=== PATIENT | male | born 1950 | race Caucasian/White ===

== ENCOUNTER 2020-11-19 16:22 | Outpatient (REF) | payer MEDICARE, SELFPAY ==
--- NOTE | ~2020-11-19 | US_ITS ---
EXAMINATION: US THYROID CLINICAL INFORMATION: Nontoxic single thyroid nodule. History of previous bilateral thyroid nodule fine-needle aspiration COMPARISON: Ultrasound thyroid soft tissue neck 10/06/2018 and 08/09/2018. TECHNIQUE: Linear transducer grayscale and color Doppler examination with attention to the region of the thyroid. FINDINGS: SIZE: Measurements of the thyroid lobes and nodules are given in sagittal, anteroposterior and transverse dimensions respectively. Right Thyroid Lobe: 6.0 x 1.4 x 1.8 cm, volume 7.7 mL. Previously 6.2 x 2.1 x 2.4 cm, volume 16.9 mL. Parenchyma: The gland echotexture is heterogeneous. Thyroid vascularity is normal. Left Thyroid Lobe: 6.0 x 1.9 x 1.9 cm, volume 11.2 mL. Previously 6.0 x 2.3 x 2.6 cm, volume 19.0 mL. Parenchyma: The gland echotexture is heterogeneous. Thyroid vascularity is normal. Isthmus: 0.37 cm in maximum AP dimension. Previously 0.6 cm. There are multiple thyroid nodules. Estimated total number of nodules greater than or equal to 1 cm: 4. Nailing Machine Operator nodules are described as follows: 1. Location: Right lower pole. Size: 1.1 x 0.6 x 0.92 cm, volume 0.32 mL. Previously: Not seen previously. Nodule characteristics: Composition: Solid/almost completely solid (2). Echogenicity: Isoechoic (1). Shape: Not taller than wide (0). Margins: Smooth (0). Echogenic Foci: None (0). ACR TI-RADS total points: 3 Previous: 3 ACR TI-RADS category: 1 Previous: 1 Significant change in size (>/= 20% in 2 dimensions and minimal increase of 2 mm or 50% or greater increase in volume): Change in features: Change in ACR TI-RADS risk category: 2. Location: Right lower pole. Size: 1.7 x 1.3 x 1.7 cm, volume 2.0 mL. Previously: 1.9 x 1.6 x 1.5 cm, volume 2.4 mL. Nodule characteristics: Composition: Solid/almost completely solid (2). Echogenicity: Isoechoic (1). Shape: Not taller than wide (0). Margins: Smooth (0). Echogenic Foci: None (0). ACR TI-RADS total points: 3 Previous: 3 ACR TI-RADS category: 1 Previous: 1 Significant change in size (>/= 20% in 2 dimensions and minimal increase of 2 mm or 50% or greater increase in volume): Change in features: Change in ACR TI-RADS risk category: 3. Location: Right lower pole. Size: 1.8 x 1.1 x 1.7 cm, volume 1.8 mL. Previously: 2.4 x 1.2 x 1.9 cm, volume 2.9 mL. Nodule characteristics: Composition: Solid/almost completely solid (2). Echogenicity: Hypoechoic (2). Shape: Not taller than wide (0). Margins: Smooth (0). Echogenic Foci: None (0). ACR TI-RADS total points: 4 Previous: 4 ACR TI-RADS category: 1 Previous: 1 Significant change in size (>/= 20% in 2 dimensions and minimal increase of 2 mm or 50% or greater increase in volume): Change in features: Change in ACR TI-RADS risk category: 4. Location: Left. Size: 2.5 x 2.0 x 1.7 cm, volume 4.4 mL. Previously: 1.4 x 1.1 x 1.2 cm, volume 1.0 mL. Nodule characteristics: Composition: Mixed cystic and solid (1). Echogenicity: Hypoechoic (2). Shape: Not taller than wide (0). Margins: Smooth (0). Echogenic Foci: None (0). ACR TI-RADS total points: 3 Previous: 3 ACR TI-RADS category: 1 Previous: 1 Significant change in size (>/= 20% in 2 dimensions and minimal increase of 2 mm or 50% or greater increase in volume): Yes. Some of the measured difference may be due to interobserver variation of the margin of the nodule. Change in features: Change in ACR TI-RADS risk category: NODES: No lymphadenopathy is seen in the tissue surrounding the thyroid gland. US/US thyroid IMPRESSION: Heterogeneous thyroid gland with multiple bilateral nodules. Interval increase in largest nodule in the mid left lobe. According to TI RADS criteria, fine-needle aspiration of this nodule would be recommended. Newly appreciated right inferior nodule. ACR TI-RADS RECOMMENDATION REFERENCE: Ultrasound-guided fine-needle aspiration, followup ultrasound, no further follow up. * TR1 (0 point) and TR 2 (2 points): No FNA or follow up * TR3 (3 points): FNA if more than or equal to 2.5 cm in maximum dimension, followup ultrasound in 1, 3 and 5 years if 1.5 to 2.4 cm in maximum dimension. * TR4 (4-6 points): FNA if more than or equal to 1.5 cm in maximum dimension, followup ultrasound in 1, 2, 3 and 5 years if 1 to 1.4 cm in maximum dimension. * TR5 (more than or equal to 7 points): FNA if more than or equal to 1 cm in maximum dimension, followup ultrasound every year for 5 years if 0.5 to 0.9 cm in maximum dimension. * TR3, TR4 or TR5 nodules that are below the size threshold for follow up receive no follow up.
== END 2020-11-19 16:23 | disposition home or self-care (01) ==
LOC: HO.US 16:22
PROVIDERS: Visit Provider Internal Medicine
DX: E04.1 Nontoxic single thyroid nodule (principal)
CPT/HCPCS: 76536

== ENCOUNTER 2021-02-13 08:40 | Outpatient (REF) | payer MEDICARE, SELFPAY ==
--- NOTE | 2021-02-13 09:56 | P.BOP_ITS ---
Brief Operative Note Date of Service: 02/13/21 Pre-op diagnosis: Multinodular Thyroid Procedure: This is doctor Gabriela Huffman. This is an ultrasound-guided fine-needle aspiration report. Date of Examination: 02/13/2021 Indication: Multinodular Thyroid Porcedure: Initially an US was performed. The Patient had previously had FNA biopsy in 2018 of an Isthmus 1.2 cm, RLP 2.3 cm, LMP 1.2 cm and a LLP 2.[address] Mosqueda, all with benign cytology. He had also previosly had benign FNA of other L lobe nodules by Dr. Betancourt and Dr. Hyman. Repeat US revealed identification of multiple new nodules, and nodules that had interval growth. FNA biopsy was determined to be indicated for the RMP 2.5 cm, Right Isthmus 1.0 cm, Isthmus 1.5 cm, LMP 2.2 cm and LLP 2.9 cm thyroid nodules. FNA biopsy was performed on 3 of these nodules today, the RMP 2.5 cm, R isthmus 1.0 cm and Isthmus 1.5 cm thyroid nodules. The remaining LMP 2.2 cm and LLP 2.9 cm thyroid nodule FNAs will be performed in a separate session. Procedure was explained to the patient. Alternatives, the risk and benefits were discussed. Written consent was obtained. A time-out was also obtained. After sterile preparation, fine-needle aspiration of a Right Mid Pole 2.5 cm thyroid nodule was performed using direct ultrasound guidance to confirm accurate needle placement. Three aspirations were made using 27 gauge needles. Samples were submitted for cytology. One pass was dedicated for [employer] sequencing material handling warehouse supervisor testing. Our attention was then turned to the right isthmus. Fine-needle aspiration of a Right Isthmus 1.0 cm thyroid nodule was performed using direct ultrasound guidance to confirm accurate needle placement. Four aspirations were made using 27 gauge needles. Samples were submitted for cytology. One pass was dedicated for [employer] sequencing material handling warehouse supervisor testing. Our attention was then turned to the Isthmus. Fine-needle aspiration of an Isthmus 1.5 cm thyroid nodule was performed using direct ultrasound guidance to confirm accurate needle placement. Four aspirations were made using 27 gauge needles. Samples were submitted for cytology. One pass was dedicated for [employer] sequencing material handling warehouse supervisor testing. The patient tolerated the procedure well. Aftercare instructions were provided. Impression: Uncomplicated fine needle aspiration biopsy of a Right Mid Pole 2.5 cm, Right Isthmus 1.0 cm and Isthmus 1.5 cm thyroid nodule under ultrasound guidance. The patient will be scheduled for another session to complete FNA biopsy of the LMP 2.2 cm and LLP 2.9 cm thyroid nodules. Surgeon: Gabriela Huffman, DO Was an Powder Worker used for this Procedure?: No Estimated blood loss (mL): 0
== END 2021-02-13 08:41 | disposition home or self-care (01) ==
LOC: HO.US 08:40
PROVIDERS: PCP Internal Medicine; Visit Provider Internal Medicine
DX: E04.2 Nontoxic multinodular goiter (principal)
CPT/HCPCS: 10005; 10006; 88172; 88173; 88177; 88305

== ENCOUNTER → 2021-03-17 08:54 | Outpatient (BNVA) | payer MEDICARE, SELFPAY | PROVIDERS: PCP Internal Medicine; Visit Provider Internal Medicine | CPT/HCPCS: Q3014 ==

== ENCOUNTER 2021-06-26 10:33 | Outpatient (REF) | payer MEDICARE, OTHER, SELFPAY ==
--- NOTE | 2021-06-26 11:30 | PM.OP ---
Brief Operative Note Date of Service: 06/26/21 Pre-op diagnosis: Multinodular Thyroid Procedure: This is doctor Gabriela Huffman. This is an ultrasound-guided fine-needle aspiration report. Date of Examination: 06/26/2021 Indication: Multinodular Thyroid Porcedure: Procedure was explained to the patient. Alternatives, the risk and benefits were discussed. Written consent was obtained. A time-out was also obtained. After sterile preparation, fine-needle aspiration of a left mid pole 2.2 cm thyroid nodule was performed using direct ultrasound guidance to confirm accurate needle placement. Four aspirations were made using 27 gauge needles. Two additional aspirations were made using 25 guage needles. Samples were submitted for cytology. One pass was dedicated for [employer] sequencing aoc operations intelligence officer testing. Our attention was then turned to the left lower pole. Fine-needle aspiration of a left lower pole 2.9 cm thyroid nodule was performed using direct ultrasound guidance to confirm accurate needle placement. One aspiration was made using 27 gauge needles. Four additional aspirations were made using 25 guage needles. Samples were submitted for cytology. One pass was dedicated for [employer] sequencing aoc operations intelligence officer testing. The patient tolerated the procedure well. Aftercare instructions were provided. Impression: Uncomplicated fine needle aspiration biopsy of a left mid pole 2.2 cm thyroid nodule and a left lower pole 2.9 cm thyroid nodule under ultrasound guidance. Surgeon: Gabriela Huffman, DO Was an Api Product Manager used for this Procedure?: No Estimated blood loss (mL): 0
== END 2021-06-26 10:34 | disposition home or self-care (01) ==
LOC: HO.US 10:33
PROVIDERS: PCP Family Medicine; Visit Provider Internal Medicine
DX: E04.2 Nontoxic multinodular goiter (principal)
CPT/HCPCS: 10005; 10006; 88172; 88173; 88177

== ENCOUNTER 2021-07-09 13:19 | Outpatient (REF) | payer MEDICARE, SELFPAY ==
[2021-07-09 14:58] LABS: Free T4 (Free Thyroxine) 1.74 ng/dL (0.71-1.85); Thyroid Stimulating Hormone < 0.01 uIU/mL (0.32-4.0)
== END 2021-07-09 13:20 | disposition home or self-care (01) ==
LOC: HO.LAB 13:19
PROVIDERS: PCP Family Medicine; Visit Provider Internal Medicine
DX: E04.2 Nontoxic multinodular goiter (principal)
CPT/HCPCS: 36415; 84439; 84443

== ENCOUNTER → 2021-07-10 10:14 | Outpatient (BNVA) | payer MEDICARE, SELFPAY | PROVIDERS: PCP Internal Medicine; Visit Provider Internal Medicine | DX: E04.2 Nontoxic multinodular goiter (principal); E05.90 Thyrotoxicosis, unspecified without thyrotoxic crisis or storm | CPT/HCPCS: Q3014 ==

== ENCOUNTER 2021-08-13 11:19 | Outpatient (REF) | payer MEDICARE, SELFPAY ==
[2021-08-13 14:13] LABS: Free T4 (Free Thyroxine) 1.33 ng/dL (0.71-1.85); Thyroid Stimulating Hormone < 0.01 uIU/mL (0.32-4.0)
[2021-08-15 00:42] LABS: Triiodothyronine T3 Total 118 ng/dL (76-181)
[2021-08-15 18:02] LABS: Thyroglobulin Antibodies <1 IU/mL (< or = 1); Thyroid Peroxidase Antibodies <1 IU/mL (<9)
[2021-08-19 14:31] LABS: Thyrotropin Receptor Antibody <1.00 IU/L (<=2.00)
[2021-08-19 16:57] LABS: Thyroid Stimulating Immunoglob 157 % baseline (<140)
== END 2021-08-13 11:20 | disposition home or self-care (01) ==
LOC: HO.LAB 11:19
PROVIDERS: PCP Family Medicine; Visit Provider Internal Medicine
DX: E05.90 Thyrotoxicosis, unspecified without thyrotoxic crisis or storm (principal); E04.2 Nontoxic multinodular goiter
CPT/HCPCS: 36415; 83520; 84439; 84443; 84445; 84480; 86376; 86800

== ENCOUNTER → 2021-08-21 10:35 | Outpatient (BNVA) | payer MEDICARE, SELFPAY | PROVIDERS: PCP Family Medicine; Visit Provider Internal Medicine | DX: E04.2 Nontoxic multinodular goiter (principal); E05.90 Thyrotoxicosis, unspecified without thyrotoxic crisis or storm | CPT/HCPCS: Q3014 ==

== ENCOUNTER 2021-09-30 07:56 | Outpatient (REF) | payer MEDICARE, SELFPAY ==
[2021-09-30 10:08] LABS: Free T4 (Free Thyroxine) 2.03 ng/dL (0.71-1.85); Thyroid Stimulating Hormone < 0.01 uIU/mL (0.32-4.0)
[2021-10-03 00:52] LABS: Triiodothyronine T3 Total 172 ng/dL (76-181)
== END 2021-09-30 07:57 | disposition home or self-care (01) ==
LOC: HO.LAB 07:56
PROVIDERS: PCP Family Medicine; Visit Provider Internal Medicine
DX: E05.90 Thyrotoxicosis, unspecified without thyrotoxic crisis or storm (principal); E04.2 Nontoxic multinodular goiter
CPT/HCPCS: 36415; 84439; 84443; 84480

== ENCOUNTER → 2021-10-02 08:46 | Outpatient (BNVA) | payer MEDICARE, SELFPAY | PROVIDERS: PCP Family Medicine; Visit Provider Internal Medicine | DX: E05.90 Thyrotoxicosis, unspecified without thyrotoxic crisis or storm (principal); E04.2 Nontoxic multinodular goiter | CPT/HCPCS: Q3014 ==

== ENCOUNTER → 2021-10-15 10:08 | Outpatient (REF) | payer MEDICARE, SELFPAY ==
--- NOTE | ~2021-10-15 | NM_ITS ---
EXAMINATION: THYROID UPTAKE AND SCAN CLINICAL INFORMATION: Thyrotoxicosis. COMPARISON: No previous radionuclide scan is available for comparison. Multiple fibroid ultrasound and ultrasound-guided thyroid biopsies are available for comparison, the most recent a thyroid ultrasound study dated 11/19/2020. TECHNIQUE: Following the oral administration of 273 microcuries of I-123 sodium iodide, thyroid uptake was performed and expressed as a percentage of the administrated dose. Gamma scintillation camera images of the thyroid in the anterior and right and left anterior oblique views were obtained using a pinhole collimator following the administration of 10 mCi Tc-99m pertechnetate. FINDINGS: The uptake is 9.0% at 4 hours and 35.3% at 24 hours (Normal radioiodine uptake at 24 hours is 10% to 30%). The radioiodine uptake is mildly elevated. The radiopertechnetate thyroid scintigram demonstrates the thyroid gland to be normal in size, shape, and position. There is moderately heterogeneous distribution of activity within the gland with small rounded areas of relatively increased and decreased activity present bilaterally.. These focal areas appear to be predominantly rounded areas of increased activity with scattered regions of decreased activity less numerous. The overall trapping function is moderately increased throughout. A dominant focus by size is not present but the most intense focus of increased activity is in the mid right lobe. The ultrasound study dated 11/19/2020 showed multiple nodules bilaterally any of which are subcentimeter in size, but at least 4 showed size is greater than 1 cm. Because of the number of nodules and the differences in these 2 modalities is not possible to accurately matched to the nodules on the radionuclide scan 2 nonspecific nodules on the ultrasound. 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 The radioiodine uptake is mildly elevated.
== END ==
LOC: HO.NUCMED 10:08
PROVIDERS: PCP Family Medicine; Visit Provider Internal Medicine
DX: E05.90 Thyrotoxicosis, unspecified without thyrotoxic crisis or storm (principal); E04.2 Nontoxic multinodular goiter
CPT/HCPCS: 78014; A9512; A9516

== ENCOUNTER 2021-10-30 09:31 | Outpatient (REF) | payer MEDICARE, SELFPAY ==
[2021-10-30 10:58] LABS: Calcium 9.3 mg/dL (8.4-10.2); Phosphorus 2.5 mg/dL (2.7-4.5)
[2021-10-30 11:28] LABS: Vitamin D 25-OH Total 33.7 ng/mL (>30)
[2021-10-31 13:26] LABS: Calcium (PTHI) 9.3 mg/dL (8.6-10.3); PTHI 30 pg/mL (16-77)
[2021-11-01 08:56] LABS: Triiodothyronine T3 Total 167 ng/dL (76-181)
== END 2021-10-30 09:32 | disposition home or self-care (01) ==
LOC: HO.LAB 09:31
PROVIDERS: PCP Family Medicine; Visit Provider Internal Medicine
DX: E05.90 Thyrotoxicosis, unspecified without thyrotoxic crisis or storm (principal); E04.2 Nontoxic multinodular goiter
CPT/HCPCS: 36415; 82040; 82306; 82310; 83970; 84100; 84439; 84480

== ENCOUNTER 2021-11-06 09:21 | Outpatient (REF) | payer MEDICARE, SELFPAY ==
[2021-11-06 10:49] LABS: Free T4 (Free Thyroxine) 1.83 ng/dL (0.71-1.85)
[2021-11-08 18:17] LABS: Triiodothyronine T3 Total 158 ng/dL (76-181)
== END 2021-11-06 09:22 | disposition home or self-care (01) ==
LOC: HO.LAB 09:21
PROVIDERS: Visit Provider Internal Medicine
DX: E05.90 Thyrotoxicosis, unspecified without thyrotoxic crisis or storm (principal)
CPT/HCPCS: 36415; 84439; 84480

== ENCOUNTER 2021-11-27 08:32 | Outpatient (REF) | payer MEDICARE, SELFPAY ==
[2021-11-27 09:54] LABS: Free T4 (Free Thyroxine) 1.22 ng/dL (0.71-1.85); Thyroid Stimulating Hormone < 0.01 uIU/mL (0.32-4.0)
[2021-11-29 04:48] LABS: Triiodothyronine T3 Total 119 ng/dL (76-181)
== END 2021-11-27 08:33 | disposition home or self-care (01) ==
LOC: HO.LAB 08:32
PROVIDERS: PCP Family Medicine; Visit Provider Internal Medicine
DX: E05.90 Thyrotoxicosis, unspecified without thyrotoxic crisis or storm (principal)
CPT/HCPCS: 36415; 84439; 84443; 84480

== ENCOUNTER 2021-12-31 08:59 | Outpatient (REF) | payer MEDICARE, SELFPAY ==
[2021-12-31 10:23] LABS: Thyroid Stimulating Hormone 0.02 uIU/mL (0.32-4.0)
[2022-01-02 05:07] LABS: Triiodothyronine T3 Total 90 ng/dL (76-181)
== END 2021-12-31 09:00 | disposition home or self-care (01) ==
LOC: HO.LAB 08:59
PROVIDERS: PCP Family Medicine; Visit Provider Internal Medicine
DX: E05.00 Thyrotoxicosis with diffuse goiter without thyrotoxic crisis or storm (principal)
CPT/HCPCS: 36415; 84439; 84443; 84480

== ENCOUNTER 2022-03-16 14:12 | Outpatient (REF) | payer MEDICARE, SELFPAY ==
[2022-03-16 15:53] LABS: Thyroid Stimulating Hormone 4.06 uIU/mL (0.32-4.0)
[2022-03-18 03:31] LABS: Triiodothyronine T3 Total 87 ng/dL (76-181)
== END 2022-03-16 14:13 | disposition home or self-care (01) ==
LOC: HO.LAB 14:12
PROVIDERS: PCP Family Medicine; Visit Provider Internal Medicine
DX: E05.90 Thyrotoxicosis, unspecified without thyrotoxic crisis or storm (principal)
CPT/HCPCS: 36415; 84439; 84443; 84480

== ENCOUNTER 2022-03-30 14:51 | Outpatient (REF) | payer MEDICARE, SELFPAY ==
[2022-03-30 16:11] LABS: Free T4 (Free Thyroxine) 0.95 ng/dL (0.71-1.85)
[2022-04-01 01:43] LABS: Triiodothyronine T3 Total 84 ng/dL (76-181)
== END 2022-03-30 14:52 | disposition home or self-care (01) ==
LOC: HO.LAB 14:51
PROVIDERS: PCP Family Medicine; Visit Provider Internal Medicine
DX: E05.90 Thyrotoxicosis, unspecified without thyrotoxic crisis or storm (principal)
CPT/HCPCS: 36415; 84439; 84480

== ENCOUNTER 2022-04-16 09:56 | Outpatient (REF) | payer MEDICARE, SELFPAY ==
[2022-04-16 11:16] LABS: Thyroid Stimulating Hormone 3.16 uIU/mL (0.32-4.0)
[2022-04-16 11:37] LABS: Free T4 (Free Thyroxine) 0.87 ng/dL (0.71-1.85)
[2022-04-18 08:57] LABS: Triiodothyronine T3 Total 85 ng/dL (76-181)
== END 2022-04-16 09:57 | disposition home or self-care (01) ==
LOC: HO.LAB 09:56
PROVIDERS: PCP Family Medicine; Visit Provider Internal Medicine
DX: E05.90 Thyrotoxicosis, unspecified without thyrotoxic crisis or storm (principal)
CPT/HCPCS: 36415; 84439; 84443; 84480

== ENCOUNTER 2022-05-06 11:12 | Outpatient (REF) | payer MEDICARE, SELFPAY ==
[2022-05-06 13:46] LABS: Free T4 (Free Thyroxine) 1.07 ng/dL (0.71-1.85)
[2022-05-07 15:58] LABS: Triiodothyronine T3 Total 100 ng/dL (76-181)
== END 2022-05-06 11:13 | disposition home or self-care (01) ==
LOC: HO.LAB 11:12
PROVIDERS: PCP Family Medicine; Visit Provider Internal Medicine
DX: E05.00 Thyrotoxicosis with diffuse goiter without thyrotoxic crisis or storm (principal)
CPT/HCPCS: 36415; 84439; 84480

== ENCOUNTER 2022-06-25 08:57 | Outpatient (REF) | payer MEDICARE, SELFPAY ==
[2022-06-25 10:52] LABS: Free T4 (Free Thyroxine) 1.31 ng/dL (0.71-1.85); Thyroid Stimulating Hormone 0.31 uIU/mL (0.32-4.0)
[2022-06-27 01:29] LABS: Triiodothyronine T3 Total 104 ng/dL (76-181)
== END 2022-06-25 08:58 | disposition home or self-care (01) ==
LOC: HO.LAB 08:57
PROVIDERS: PCP Family Medicine; Visit Provider Internal Medicine
DX: E05.00 Thyrotoxicosis with diffuse goiter without thyrotoxic crisis or storm (principal)
CPT/HCPCS: 36415; 84439; 84443; 84480

== ENCOUNTER → 2022-07-16 13:30 | Outpatient (BNVA) | payer MEDICARE, OTHER, SELFPAY | PROVIDERS: PCP Family Medicine; Visit Provider Internal Medicine | DX: E89.0 Postprocedural hypothyroidism (principal); E55.9 Vitamin D deficiency, unspecified | CPT/HCPCS: 99212 ==

== ENCOUNTER 2022-08-07 08:24 | Outpatient (REF) | payer MEDICARE, SELFPAY ==
[2022-08-07 09:30] LABS: Albumin Level 4.2 g/dL (3.5-5.0); Estimated Glomerular Filt Rate > 60
[2022-08-07 09:50] LABS: Free T4 (Free Thyroxine) 1.28 ng/dL (0.71-1.85); Thyroid Stimulating Hormone 0.64 uIU/mL (0.32-4.0)
[2022-08-10 15:29] LABS: Calcium (PTHI) 8.6 mg/dL (8.6-10.3); PTHI 29 pg/mL (16-77)
== END 2022-08-07 08:25 | disposition home or self-care (01) ==
LOC: HO.LAB 08:24
PROVIDERS: PCP Family Medicine; Visit Provider Internal Medicine
DX: E89.0 Postprocedural hypothyroidism (principal); E55.9 Vitamin D deficiency, unspecified
CPT/HCPCS: 36415; 82040; 82306; 82565; 83970; 84439; 84443

== ENCOUNTER 2022-09-23 13:18 | Outpatient (REF) | payer MEDICARE, SELFPAY ==
[2022-09-23 15:57] LABS: Free T4 (Free Thyroxine) 1.42 ng/dL (0.71-1.85); Thyroid Stimulating Hormone 0.47 uIU/mL (0.32-4.0)
== END 2022-09-23 13:19 | disposition home or self-care (01) ==
LOC: HO.LAB 13:18
PROVIDERS: PCP Family Medicine; Visit Provider Internal Medicine
DX: E89.0 Postprocedural hypothyroidism (principal)
CPT/HCPCS: 36415; 84439; 84443

== ENCOUNTER 2022-11-04 08:49 | Outpatient (AMB) | payer MEDICARE, SELFPAY ==
--- NOTE | 2022-11-04 08:49 | A.OFFVIS_ITS ---
Intake Intake Visit Reasons: F/U Hypothyroidism Intake Note: pt is here for hypothyroidism Foreign Agent Required: No Allergies No Known Allergies Allergy (Verified 11/04/22 10:01) Medication List - Last Reconciled 11/04/22 by Gabriela Huffman, atorvastatin 10 mg PO DAILY levothyroxine 112 mcg PO DAILY 90 days nifedipine ER 60 mg PO DAILY tamsulosin 0.4 mg PO DAILY HPI HPI Comments History of Present Illness Details 71 YO Male who is seen in F/U for a multinodular thyroid and Grave's disease. He was previously followed by Dr. Mosqueda. He has a longstanding history of a multinodular thyroid. The Patient had previously had an FNA biopsy in 2018 of an Isthmus 1.2 cm, RLP 2.3 cm, LMP 1.2 cm and a LLP 2.[address]ule [address] Mosqueda, all with benign cytology.? He had also previosly had benign FNA of other L lobe nodules by Dr. Betancourt and Dr. Hyman. Repeat US revealed identification of multiple new nodules, and nodules that had interval growth.? FNA biopsy was determined to be indicated for the RMP 2.5 cm, Right Isthmus 1.0 cm, Isthmus 1.5 cm, LMP 2.2 cm and LLP 2.9 cm thyroid nodules. 02/13/2021 he underwent FNA biopsy by de of his RMP 2.5 cm, R isthmus 1.0 cm and Isthmus 1.5 cm thyroid nodules. Cytology was benign, bethesda category II for all nodules. He then underwent additional biopsies 06/26/2021 of his LMP 2.2 cm and his LLP 2.9 cm thyroid nodules. Cytology was benign, bethesda category II for both of these nodules. TSH was found to be in the hyperthyroid range. This was repeated and again found to be completely supressed. His TSI was positive, but TRAB, TPO and TG antibodies were negative. He was ordered for an uptake and scan, which confirmed a toxic MNG. He was started on methimazole and did achieve euthyroidism. He was referred to Dr. Cary and underwent a total thyroidectomy 06/01/2022. Official surgical path was benign. He was started postoperatively on levothyroxine 125 mcg PO daily. Repeat labs 6 weeks later revealed hyperthyroidism, so his dose was decreased to 112 mcg PO daily which he remains on now. TSH is at goal. He reports feeling well. He denies any symptoms of hyper or hypothyroidism. US Thyroid 11/19/2020: Right Thyroid Lobe: 6.0 x 1.4 x 1.8 cm, volume 7.7 mL. Previously 6.2 x 2.1 x 2.4 cm, volume 16.9 mL. Parenchyma: The gland echotexture is heterogeneous. Thyroid vascularity is normal. Left Thyroid Lobe: 6.0 x 1.9 x 1.9 cm, volume 11.2 mL. Previously 6.0 x 2.3 x 2.6 cm, volume 19.0 mL. Parenchyma: The gland echotexture is heterogeneous. Thyroid vascularity is normal. Isthmus: 0.37 cm in maximum AP dimension. Previously 0.6 cm. There are multiple thyroid nodules. Estimated total number of nodules greater than or equal to 1 cm: 4. Automobile Brake Bonder nodules are described as follows: 1.? Location: Right lower pole. ?? ? Size: 1.1 x 0.6 x 0.92 cm, volume 0.32 mL. ?? ? Previously: Not seen previously. ?? ? Nodule characteristics: ?? ? Composition: Solid/almost completely solid (2). ?? ? Echogenicity: Isoechoic (1). ?? ? Shape: Not taller than wide (0). ?? ? Margins: Smooth (0). ?? ? Echogenic Foci: None (0).? ACR TI-RADS total points: 3 Previous: 3 ?? ? ACR TI-RADS category: 1 Previous: 1 ? Significant change in size (>/= 20% in 2 dimensions and minimal increase of 2 mm or 50% or greater increase in volume): ?? ? Change in features: ?? ? Change in ACR TI-RADS risk category: 2.? Location: Right lower pole. ?? ? Size: 1.7 x 1.3 x 1.7 cm, volume 2.0 mL. ?? ? Previously: 1.9 x 1.6 x 1.5 cm, volume 2.4 mL. ?? ? Nodule characteristics: ?? ? Composition: Solid/almost completely solid (2). ?? ? Echogenicity: Isoechoic (1). ?? ? Shape: Not taller than wide (0). ?? ? Margins: Smooth (0). ?? ? Echogenic Foci: None (0). ? ACR TI-RADS total points: 3 Previous: 3 ?? ? ACR TI-RADS category: 1 Previous: 1 ? Significant change in size (>/= 20% in 2 dimensions and minimal increase of 2 mm or 50% or greater increase in volume): ?? ? Change in features: ?? ? Change in ACR TI-RADS risk category: 3.? Location: Right lower pole. ?? ? Size: 1.8 x 1.1 x 1.7 cm, volume 1.8 mL. ?? ? Previously: 2.4 x 1.2 x 1.9 cm, volume 2.9 mL. ?? ? Nodule characteristics: ?? ? Composition: Solid/almost completely solid (2). ?? ? Echogenicity: Hypoechoic (2). ?? ? Shape: Not taller than wide (0). ?? ? Margins: Smooth (0). ?? ? Echogenic Foci: None (0). ? ACR TI-RADS total points: 4 Previous: 4 ?? ? ACR TI-RADS category: 1 Previous: 1 ? Significant change in size (>/= 20% in 2 dimensions and minimal increase of 2 mm or 50% or greater increase in volume): ?? ? Change in features: ?? ? Change in ACR TI-RADS risk category: 4.? Location: Left. ?? ? Size: 2.5 x 2.0 x 1.7 cm, volume 4.4 mL. ?? ? Previously: 1.4 x 1.1 x 1.2 cm, volume 1.0 mL. ?? ? Nodule characteristics: ?? ? Composition: Mixed cystic and solid (1). ?? ? Echogenicity: Hypoechoic (2). ?? ? Shape: Not taller than wide (0). ?? ? Margins: Smooth (0). ?? ? Echogenic Foci: None (0). ? ACR TI-RADS total points: 3 Previous: 3 ?? ? ACR TI-RADS category: 1 Previous: 1 ? Significant change in size (>/= 20% in 2 dimensions and minimal increase of 2 mm or 50% or greater increase in volume): Yes. Some of the measured difference may be due to interobserver variation of the margin of the nodule. ?? ? Change in features: ?? ? Change in ACR TI-RADS risk category: NODES: No lymphadenopathy is seen in the tissue surrounding the thyroid gland. Labs: Laboratory Tests 09/23/22 13:31 TSH 0.47 Free T4 1.42 PFSH Medical History Hyperthyroidism Multinodular thyroid Postoperative hypothyroidism Surgical History Hx of biopsy Hx of hernia repair Hx of sigmoidoscopy Hx of total thyroidectomy Family History Father Colon cancer Mother Thyroid disease Brother Thyroid cancer Social History Alcohol intake: current Alcohol intake frequency: a few times a month Patient Tobacco Use Status: Never used Tobacco Assessment & Plan Assessment & Plan (1) Postoperative hypothyroidism: Code(s): E89.0 - Postprocedural hypothyroidism Plan: Patient with postoperative hypothyroidism after a total thyroidectomy. He remains on levothyroxine 112 mcg PO daily. TSH is at goal. Will continue on this dose and he will repeat labs in 3 months time. All questions were answered. He is in agreement with this plan of care. I spent 20 minutes in reviewing the record, seeing the patient and documenting in the medical record, including 5 minutes on the phone with the Patient. Orders: Orders Free T4 (Free Thyroxine) 3 Months E89.0 - Postprocedural hypothyroidism Thyroid Stimulating Hormone 3 Months E89.0 - Postprocedural hypothyroidism Telehealth Telehealth Location of provider rendering services: practice address Location of patient: address on file Patient Identification confirmed using: Name, : Yes Telehealth method: voice only Patient verbally consented to treatment: Yes Patient verbally consented to billing insurance company: Yes Patient informed of any privacy concerns related to visit: Yes Coding Level of Care Code Tele Est Pt Level 3 (03512) Diagnoses Postoperative hypothyroidism E89.0
== END 2022-11-04 13:20 | disposition home or self-care (01) ==
LOC: HO.ENCR 08:49
PROVIDERS: PCP Family Medicine; Visit Provider Internal Medicine
DX: E89.0 Postprocedural hypothyroidism (principal)
CPT/HCPCS: 99443

== ENCOUNTER → 2022-11-04 08:49 | Outpatient (BNVA) | payer MEDICARE, SELFPAY | PROVIDERS: PCP Family Medicine; Visit Provider Internal Medicine ==

== ENCOUNTER 2023-02-04 13:04 | Outpatient (REF) | payer MEDICARE, SELFPAY ==
[2023-02-04 14:46] LABS: Free T4 (Free Thyroxine) 1.19 ng/dL (0.71-1.85); Thyroid Stimulating Hormone 2.55 uIU/mL (0.32-4.0)
== END 2023-02-04 13:05 | disposition home or self-care (01) ==
LOC: HO.LAB 13:04
PROVIDERS: PCP Family Medicine; Visit Provider Internal Medicine Endocrinology, Diabetes & Metabolism
DX: E89.0 Postprocedural hypothyroidism (principal)
CPT/HCPCS: 36415; 84439; 84443

== ENCOUNTER 2023-02-17 09:12 | Outpatient (AMB) | payer MEDICARE, SELFPAY ==
[2023-02-17 09:16] VITALS: BP 126/80; PULSE 82; BMI 28.2
--- NOTE | 2023-02-17 09:16 | MHC.OFFVIS ---
Intake Vital Signs 02/17/23 09:16 Height 5 ft 9 in Weight 190 lb 11.198 oz BMI 28.2 BP 126/80 Blood Pressure Location Lt brachial Position Sitting Pulse 82 Pulse Source Pulse Oximeter Intake Visit Reasons: F/U Hypothyroidism/Confirmed Intake Note: New patient to Dr. Hyman present today for Hypothyroidism follow up visit. Previously followed by Dr. Dupont. 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 He was previously followed by Dr. Mosqueda. Patient last saw Dr. Dupont on 11/04/2022. Currently on 112 ug He has a longstanding history of a multinodular thyroid. The Patient had previously had an FNA biopsy in 2018 of an Isthmus 1.2 cm, RLP 2.3 cm, LMP 1.2 cm and a LLP 2.[address] nodule [address] Dr[address] Mosqueda, all with benign cytology.? He had also previosly had benign FNA of other L lobe nodules by Dr. Betnacourt and Dr. Hyman. Repeat US revealed identification of multiple new nodules, and nodules that had interval growth.? FNA biopsy was determined to be indicated for the RMP 2.5 cm, Right Isthmus 1.0 cm, Isthmus 1.5 cm, LMP 2.2 cm and LLP 2.9 cm thyroid nodules. 02/13/2021 he underwent FNA biopsy by hi of his RMP 2.5 cm, R isthmus 1.0 cm and Isthmus 1.5 cm thyroid nodules. Cytology was benign, bethesda category II for all nodules. He then underwent additional biopsies 06/26/2021 of his LMP 2.2 cm and his LLP 2.9 cm thyroid nodules. Cytology was benign, bethesda category II for both of these nodules. TSH was found to be in the hyperthyroid range. This was repeated and again found to be completely supressed. His TSI was positive, but TRAB, TPO and TG antibodies were negative. He was ordered for an uptake and scan, which confirmed a toxic MNG. He was started on methimazole and did achieve euthyroidism. He was referred to Dr. Cary and underwent a total thyroidectomy 06/01/2022. Official surgical path was benign. He was started postoperatively on levothyroxine 125 mcg PO daily. Repeat labs 6 weeks later revealed hyperthyroidism, so his dose was decreased to 112 mcg PO daily which he remains on now. TSH is at goal. He reports feeling well. He denies any symptoms of hyper or hypothyroidism. US Thyroid 11/19/2020: Right Thyroid Lobe: 6.0 x 1.4 x 1.8 cm, volume 7.7 mL. Previously 6.2 x 2.1 x 2.4 cm, volume 16.9 mL. Parenchyma: The gland echotexture is heterogeneous. Thyroid vascularity is normal. Left Thyroid Lobe: 6.0 x 1.9 x 1.9 cm, volume 11.2 mL. Previously 6.0 x 2.3 x 2.6 cm, volume 19.0 mL. Parenchyma: The gland echotexture is heterogeneous. Thyroid vascularity is normal. Isthmus: 0.37 cm in maximum AP dimension. Previously 0.6 cm. There are multiple thyroid nodules. Estimated total number of nodules greater than or equal to 1 cm: 4. Remittance Clerk nodules are described as follows: 1.? Location: Right lower pole. ?? ? Size: 1.1 x 0.6 x 0.92 cm, volume 0.32 mL. ?? ? Previously: Not seen previously. ?? ? Nodule characteristics: ?? ? Composition: Solid/almost completely solid (2). ?? ? Echogenicity: Isoechoic (1). ?? ? Shape: Not taller than wide (0). ?? ? Margins: Smooth (0). ?? ? Echogenic Foci: None (0).? ACR TI-RADS total points: 3 Previous: 3 ?? ? ACR TI-RADS category: 1 Previous: 1 ? Significant change in size (>/= 20% in 2 dimensions and minimal increase of 2 mm or 50% or greater increase in volume): ?? ? Change in features: ?? ? Change in ACR TI-RADS risk category: 2.? Location: Right lower pole. ?? ? Size: 1.7 x 1.3 x 1.7 cm, volume 2.0 mL. ?? ? Previously: 1.9 x 1.6 x 1.5 cm, volume 2.4 mL. ?? ? Nodule characteristics: ?? ? Composition: Solid/almost completely solid (2). ?? ? Echogenicity: Isoechoic (1). ?? ? Shape: Not taller than wide (0). ?? ? Margins: Smooth (0). ?? ? Echogenic Foci: None (0). ? ACR TI-RADS total points: 3 Previous: 3 ?? ? ACR TI-RADS category: 1 Previous: 1 ? Significant change in size (>/= 20% in 2 dimensions and minimal increase of 2 mm or 50% or greater increase in volume): ?? ? Change in features: ?? ? Change in ACR TI-RADS risk category: 3.? Location: Right lower pole. ?? ? Size: 1.8 x 1.1 x 1.7 cm, volume 1.8 mL. ?? ? Previously: 2.4 x 1.2 x 1.9 cm, volume 2.9 mL. ?? ? Nodule characteristics: ?? ? Composition: Solid/almost completely solid (2). ?? ? Echogenicity: Hypoechoic (2). ?? ? Shape: Not taller than wide (0). ?? ? Margins: Smooth (0). ?? ? Echogenic Foci: None (0). ? ACR TI-RADS total points: 4 Previous: 4 ?? ? ACR TI-RADS category: 1 Previous: 1 ? Significant change in size (>/= 20% in 2 dimensions and minimal increase of 2 mm or 50% or greater increase in volume): ?? ? Change in features: ?? ? Change in ACR TI-RADS risk category: 4.? Location: Left. ?? ? Size: 2.5 x 2.0 x 1.7 cm, volume 4.4 mL. ?? ? Previously: 1.4 x 1.1 x 1.2 cm, volume 1.0 mL. ?? ? Nodule characteristics: ?? ? Composition: Mixed cystic and solid (1). ?? ? Echogenicity: Hypoechoic (2). ?? ? Shape: Not taller than wide (0). ?? ? Margins: Smooth (0). ?? ? Echogenic Foci: None (0). ? ACR TI-RADS total points: 3 Previous: 3 ?? ? ACR TI-RADS category: 1 Previous: 1 ? Significant change in size (>/= 20% in 2 dimensions and minimal increase of 2 mm or 50% or greater increase in volume): Yes. Some of the measured difference may be due to interobserver variation of the margin of the nodule. ?? ? Change in features: ?? ? Change in ACR TI-RADS risk category: NODES: No lymphadenopathy is seen in the tissue surrounding the thyroid gland. Labs: Laboratory Tests 09/23/22 13:31 TSH 0.47 Free T4 1.42 PFSH Medical History Hyperthyroidism Multinodular thyroid Postoperative hypothyroidism Surgical History Hx of total thyroidectomy Hx of biopsy Hx of hernia repair Hx of sigmoidoscopy Family History Father Colon cancer Mother Thyroid disease Brother Thyroid cancer Social History Alcohol intake: current Alcohol intake frequency: a few times a month Patient Tobacco Use Status: Never used Tobacco Physical Exam Vital Signs: Last Vital Signs Pulse 82 02/17/23 09:16 BP 126/80 02/17/23 09:16 BMI result Body Mass Index 28.2 Coding Level of Care Code Est Pt Level 3 (80086)
== END 2023-02-17 09:34 | disposition home or self-care (01) ==
PROVIDERS: PCP Family Medicine; Visit Provider Internal Medicine Endocrinology, Diabetes & Metabolism
DX: E05.90 Thyrotoxicosis, unspecified without thyrotoxic crisis or storm (principal)
CPT/HCPCS: 99213

== ENCOUNTER → 2023-02-17 09:12 | Outpatient (BNVA) | payer MEDICARE, OTHER, SELFPAY | PROVIDERS: PCP Family Medicine; Visit Provider Internal Medicine Endocrinology, Diabetes & Metabolism | DX: E05.20 Thyrotoxicosis with toxic multinodular goiter without thyrotoxic crisis or storm (principal) | CPT/HCPCS: 99212 ==